=== PATIENT | female | born 1930 | race Caucasian/White ===

== ENCOUNTER 2019-01-20 10:54 | Outpatient (CLI) | payer MEDICARE, OTHER ==
--- NOTE | 2019-01-20 11:23 | RAD ---
Left hip 2 views HISTORY: Left hip pain. FINDINGS: Near complete loss of joint space. Prominent osteophytosis and subchondral sclerosis. Mild subcortical cyst formation. Slight irregularity of the articular surface of the femoral head. No acute fracture, dislocation, or aggressive osseous erosions. Prominent degenerative changes of the sa croiliac joint are also apparent. IMPRESSION: Severe osteoarthritis left hip.
== END 2019-01-20 10:55 | disposition home or self-care (01) ==
LOC: BICRAD 10:54
PROVIDERS: ATTEND Anesthesiology Pain Medicine
DX: M16.12 Unilateral primary osteoarthritis, left hip (principal)

== ENCOUNTER 2019-07-31 14:49 | Outpatient (CLI) | payer MEDICARE, OTHER ==
--- NOTE | 2019-07-31 15:55 | MRI ---
EXAM: Lumbar spine MRI without contrast. HISTORY: Lumbar radicular pain, low back pain COMPARISON: None FINDINGS: Multiplanar, multisequence MRI examination of the lumbar spine is performed. The conus medullaris region appears unremarkable. No evidence for abnormal marrow signal. Bilateral renal T2 hyperintense, T1 hypointense circumscribed nodular foci up to 4.3 cm on the left, statistically renal cysts Very severe multilevel disc osteophytosis and facet arthrosis.. T12-L1 disc level: Very small central protrusion with mild indention of the ventral thecal sac but no cord compression. L1-L2 disc level: Mild central canal and lateral recess stenosis and foraminal stenosis. L2-L3 disc level: Severe central canal and lateral recess and bilateral foraminal stenosis. L3-L4 disc level: Severe central canal and lateral recess stenosis and foraminal stenosis with some a ssociated annular fissures L4-L5 disc level: Very severe central canal, lateral recess, and bilateral foraminal stenosis. L5-S1 disc level: Moderate central canal and lateral recess stenosis and severe bilateral foraminal s tenosis. IMPRESSION: Multilevel variable severity up to very severe canal, lateral recess, and foraminal stenosis. Evidence for bilateral renal cysts.
== END 2019-07-31 14:50 | disposition home or self-care (01) ==
LOC: BICMRI 14:49
PROVIDERS: ATTEND Family Medicine
DX: M54.16 Radiculopathy, lumbar region (principal); M48.062 Spinal stenosis, lumbar region with neurogenic claudication; N28.1 Cyst of kidney, acquired
CPT/HCPCS: 72148